=== PATIENT | male | born 1960 | race Caucasian/White ===

== ENCOUNTER 2018-02-09 18:46 | Inpatient (IN) | payer OTHER ==
[~2018-02-09] VITALS: Ht 182.8 cm; Wt 107.5 kg
--- NOTE | ~2018-02-09 | PR ---
[place], [place] PROGRESS NOTE [facility]: [id number] UNIT #: [id number] ROOM: 404 DOCTOR: GUNNAR MENDES MD BIRTHDATE: [birth year] DOS: 02/12/2018 SUBJECTIVE: The patient was seen in the cardiology department today 02/12/2018 for followup of atypical chest discomfort and an abnormal electrocardiogram. He was seen prior to a stress test. The patient does note that he has had a long history of an abnormal electrocardiogram. A cardiac catheterization was done at the [facility] by Dr. Olmos in January 2011 and demonstrated a left dominant circulation with normal left ventricular function and normal coronaries. PHYSICAL EXAMINATION: VITAL SIGNS: Today, his pulse is 53 and regular, blood pressure is 117/77. He is afebrile. He weighs 107.5 kg and has a body mass index of 32.2. HEENT: Normocephalic and atraumatic. Extraocular muscles are intact. Sclerae are clear. Pupils are equal, round and react to light. The oral mucosa is moist. Tongue is midline. NECK: Supple. He has no jugular distention. Carotids are full. LUNGS: Respirations are unlabored. His chest is clear to auscultation and percussion. He has no presacral edema or chest wall tenderness. HEART: Has a regular rhythm. He has a fourth heart sound, but no third heart sound or murmur. The PMI is not displaced. There is no precordial heave, lift or thrill. ABDOMEN: Soft and normally active without masses, organomegaly or bruits. EXTREMITIES: Showed no edema. Peripheral pulses are diminished in the feet. IMPRESSION: 1. Atypical chest pain, possibly due to gastroesophageal reflux or musculoskeletal etiologies. 2. Abnormal electrocardiogram demonstrating lateral T-wave inversion, consistent with ischemia. 3. Fever with signs of sepsis. 4. Acute exacerbation of chronic obstructive lung disease. 5. Ongoing tobacco abuse. 6. History of heavy alcohol consumption. PLAN: We will evaluate his cardiac status further with a pharmacologic stress test. Further recommendations depend upon the results of the stress test, but given his previously normal catheterization, we will probably manage him conservatively unless the stress test is predictive of a very high risk for coronary artery disease. I thank the hospitalist physicians for asking our advice regarding his care. [place], [place] PROGRESS NOTE NAME: ALEX GILLIS UNIT #: [id number] ROOM: 404 DOCTOR: GUNNAR MENDES MD BIRTHDATE: [birth year] GUNNAR MENDES MD CM:PNTRANS 1133 [id number] GUNNAR MENDES MD 02/12/18 1153 interface
[~2018-02-09 18:46] MED LIST: ASPIRIN81 M1 PO; CIPRO500 MG PO; DAYPRO600 M1 PO; ENTERIC ASPIRI325 MG PO; METRONIDAZOLE500 MG PO; MULTIPLE VITAMI1 CAP PO; ONDANSETRON4 MG PO; PERCOCET 325 MG1 TA2 PO; PRILOSEC20 MG PO; SIMVASTATIN40 MG PO; SKELAXIN800 MG PO; ULTRAM50 MG PO; VOLTAREN75 MG PO
[2018-02-09 18:51] VITALS: BP 125/79
[2018-02-09 19:32] LABS: HEMATOCRIT 40.3 % (42.0-52.0); HEMOGLOBIN 13.7 g/dl (14.0-18.0); MEAN CELL VOLUME 97.1 fl (80.0-94.0); PLATELET COUNT AUTOMATED 202 10*3/uL (130-400); RED BLOOD COUNT 4.15 10*6/uL (4.50-5.90); RED CELL DISTRI WIDTH 12.9 % (0-14.5); WHITE BLOOD COUNT 9.5 10*3/uL (4.8-10.8)
[2018-02-09 19:43] LABS: ACT PARTIAL THROMBO TIME 21.8 SECONDS (20.8-31.5)
[2018-02-09 19:48] LABS: ALKALINE PHOSPHATASE 69 U/L (45-117); BUN 11 mg/dl (7-24); CHLORIDE 101 mmol/L (98-107); CREATININE 1.22 mg/dL (0.70-1.30); POTASSIUM 3.6 mmol/L (3.5-5.1); SGOT/AST 30 IU/L (3-35); SGPT/ALT 52 U/L (12-78); SODIUM 135 mmol/L (136-145); TOTAL PROTEIN 7.6 gm/dL (6.4-8.2)
[2018-02-09 19:50] LABS: TROPONIN I < 0.015 ng/ml (<0.045)
[2018-02-09 19:52] LABS: ATYPICAL LYMPHS 2 % (0-0); PLATELET SUFFICIENCY NORMAL (NORMAL); TOTAL CELLS COUNTED 100 #CELLS
[2018-02-09 20:07] LABS: BILIRUBIN 1+ (NEGATIVE); BLOOD 1+ (NEGATIVE); CLARITY SL CLOUDY (CLEAR); COLOR YELLOW (YELLOW); GLUCOSE NEGATIVE (NEGATIVE); KETONE NEGATIVE (NEGATIVE); LEUKO ESTERASE NEGATIVE (NEGATIVE); NITRITE NEGATIVE (NEGATIVE); PH 5.5 (5.0-9.0); SPECIFIC GRAVITY >= 1.030 (1.005-1.030); UROBILINOGEN 0.2 E.U./dl (0.2-1.0)
[2018-02-09 20:14] LABS: BACTERIA 1+; EPITHELIAL CELLS 0-2; MUCOUS 1+; RBC 41-50 rbc/hpf (0-2)
[2018-02-09 20:42] VITALS: BP 121/71
[2018-02-09 21:13] VITALS: BP 129/79
[2018-02-09 22:00] VITALS: BP 117/66
[2018-02-09 23:00] VITALS: BP 118/69
[2018-02-10] VITALS: BP 120/73
[2018-02-10] MEDS ORDERED: CELEXA20 MG PO (00:02)
[2018-02-10] MEDS ORDERED: SIMVASTATIN40 MG PO (00:03)
[2018-02-10 07:27] LABS: HEMATOCRIT 38.9 % (42.0-52.0); HEMOGLOBIN 12.6 g/dl (14.0-18.0); MEAN CELL VOLUME 99.7 fl (80.0-94.0); MEAN CORPUSCULAR HGB 32.3 pg (27.0-31.0); MEAN CORPUSCULAR HGB CONC 32.4 g/dl (33.0-37.0); MEAN PLATELET VOLUME 11.3 fl (9.6-12.3); PLATELET COUNT AUTOMATED 196 10*3/uL (130-400); RED CELL DISTRI WIDTH 12.9 % (0-14.5); WHITE BLOOD COUNT 7.5 10*3/uL (4.8-10.8)
[2018-02-10 07:53] LABS: ALBUMIN 3.5 gm/dl (3.1-4.5); BUN 13 mg/dl (7-24); CHLORIDE 104 mmol/L (98-107); CHOLESTEROL 148 mg/dL (<200); CREATININE 1.07 mg/dL (0.70-1.30); PHOSPHOROUS 3.2 mg/dL (2.5-4.9); POTASSIUM 4.1 mmol/L (3.5-5.1); SGOT/AST 27 IU/L (3-35); SGPT/ALT 48 U/L (12-78); SODIUM 138 mmol/L (136-145); TRIGLYCERIDES 140 mg/dl (<150); VLDL CHOLESTEROL 28 mg/dL (6-40)
[2018-02-10 07:59] LABS: ALKALINE PHOSPHATASE 64 U/L (45-117); HDL CHOLESTEROL 37 mg/dl (40-60); LDL CHOLESTEROL 83 mg/dL (9-159); THYROID STIM HORMONE (HS) 0.185 uIU/ml (0.358-4.75)
[2018-02-10 08:00] VITALS: BP 125/70
[2018-02-10 08:21] LABS: ATYPICAL LYMPHS 3 % (0-0); PLATELET SUFFICIENCY NORMAL (NORMAL); TOTAL CELLS COUNTED 100 #CELLS
[2018-02-10 09:41] LABS: VITAMIN D, 25-HYDROXY 27.5 ng/mL (30-100)
[2018-02-10 12:00] VITALS: BP 122/63
[2018-02-10 16:00] VITALS: BP 123/65
[2018-02-10 20:00] VITALS: BP 138/71
[2018-02-11] VITALS: BP 113/65
[2018-02-11 08:00] VITALS: BP 110/72
[2018-02-11 08:14] LABS: BASO % 0.1 % (0.0-1.0); HEMATOCRIT 39.3 % (42.0-52.0); HEMOGLOBIN 12.7 g/dl (14.0-18.0); LYMPH # 0.9 10*3/uL (1.3-4.4); MEAN CELL VOLUME 100.5 fl (80.0-94.0); MEAN CORPUSCULAR HGB 32.5 pg (27.0-31.0); MEAN CORPUSCULAR HGB CONC 32.3 g/dl (33.0-37.0); MEAN PLATELET VOLUME 11.4 fl (9.6-12.3); MONO # 0.7 10*3/uL (0.1-1.0); MONO % 4.8 % (3.0-9.0); NEUT # 12.8 10*3/uL (2.3-7.9); NEUT % 88.8 % (47.0-73.0); PLATELET COUNT AUTOMATED 196 10*3/uL (130-400); RED BLOOD COUNT 3.91 10*6/uL (4.50-5.90); WHITE BLOOD COUNT 14.4 10*3/uL (4.8-10.8)
[2018-02-11 08:38] LABS: BUN 15 mg/dl (7-24); CHLORIDE 104 mmol/L (98-107); CREATININE 1.11 mg/dL (0.70-1.30); POTASSIUM 4.4 mmol/L (3.5-5.1); SODIUM 139 mmol/L (136-145)
[2018-02-11 12:00] VITALS: BP 126/66
[2018-02-11 16:00] VITALS: BP 115/67
[2018-02-11 20:00] VITALS: BP 129/80
[2018-02-12] VITALS: BP 114/72
[2018-02-12 07:27] LABS: BASO % 0.1 % (0.0-1.0); EOS % 0.1 % (1.0-4.0); HEMATOCRIT 39.5 % (42.0-52.0); HEMOGLOBIN 12.7 g/dl (14.0-18.0); LYMPH # 1.6 10*3/uL (1.3-4.4); LYMPH % 12.6 % (27.0-41.0); MEAN CELL VOLUME 100.5 fl (80.0-94.0); MEAN CORPUSCULAR HGB 32.3 pg (27.0-31.0); MEAN CORPUSCULAR HGB CONC 32.2 g/dl (33.0-37.0); MEAN PLATELET VOLUME 11.3 fl (9.6-12.3); MONO # 0.5 10*3/uL (0.1-1.0); MONO % 4.2 % (3.0-9.0); NEUT # 10.6 10*3/uL (2.3-7.9); NEUT % 82.6 % (47.0-73.0); PLATELET COUNT AUTOMATED 207 10*3/uL (130-400); RED BLOOD COUNT 3.93 10*6/uL (4.50-5.90); RED CELL DISTRI WIDTH 12.7 % (0-14.5); WHITE BLOOD COUNT 12.8 10*3/uL (4.8-10.8)
[2018-02-12 07:56] LABS: ALBUMIN 3.3 gm/dl (3.1-4.5); ALKALINE PHOSPHATASE 45 U/L (45-117); BUN 21 mg/dl (7-24); CHLORIDE 102 mmol/L (98-107); CREATININE 1.07 mg/dL (0.70-1.30); POTASSIUM 4.2 mmol/L (3.5-5.1); SGOT/AST 22 IU/L (3-35); SGPT/ALT 35 U/L (12-78); SODIUM 137 mmol/L (136-145); TOTAL PROTEIN 6.4 gm/dL (6.4-8.2)
[2018-02-12 08:00] VITALS: BP 117/77
[2018-02-12 12:00] VITALS: BP 122/72
[2018-02-12 16:00] VITALS: BP 127/56
[2018-02-12 20:00] VITALS: BP 132/71
[2018-02-13 00:23] VITALS: BP 121/76
[2018-02-13 06:58] LABS: HEMATOCRIT 39.2 % (42.0-52.0); HEMOGLOBIN 13.1 g/dl (14.0-18.0); LYMPH # 1.7 10*3/uL (1.3-4.4); LYMPH % 15.8 % (27.0-41.0); MEAN CELL VOLUME 97.5 fl (80.0-94.0); MEAN CORPUSCULAR HGB 32.6 pg (27.0-31.0); MEAN CORPUSCULAR HGB CONC 33.4 g/dl (33.0-37.0); MEAN PLATELET VOLUME 11.2 fl (9.6-12.3); MONO # 0.4 10*3/uL (0.1-1.0); MONO % 4.1 % (3.0-9.0); NEUT # 8.5 10*3/uL (2.3-7.9); NEUT % 79.7 % (47.0-73.0); PLATELET COUNT AUTOMATED 207 10*3/uL (130-400); RED BLOOD COUNT 4.02 10*6/uL (4.50-5.90); RED CELL DISTRI WIDTH 12.3 % (0-14.5); WHITE BLOOD COUNT 10.6 10*3/uL (4.8-10.8)
[2018-02-13 07:32] LABS: ALBUMIN 3.3 gm/dl (3.1-4.5); BUN 18 mg/dl (7-24); CHLORIDE 102 mmol/L (98-107); POTASSIUM 4.1 mmol/L (3.5-5.1); SODIUM 137 mmol/L (136-145)
[2018-02-13 07:44] LABS: ALKALINE PHOSPHATASE 46 U/L (45-117); CREATININE 0.97 mg/dL (0.70-1.30); PHOSPHOROUS 3.4 mg/dL (2.5-4.9); SGOT/AST 15 IU/L (3-35); SGPT/ALT 36 U/L (12-78); TOTAL PROTEIN 6.6 gm/dL (6.4-8.2)
[2018-02-13 08:00] VITALS: BP 103/69
[2018-02-13] MEDS ORDERED: DICYCLOMINE HCL20 MG PO (09:03)
[2018-02-13] MEDS ORDERED: ZITHROMAX500 MG PO (09:03)
[2018-02-13] MEDS ORDERED: ATARAX,VISTARIL50 MG PO (09:03)
[2018-02-13] MEDS ORDERED: METHOCARBAMOL750 M1 PO (09:03)
[2018-02-13] MEDS ORDERED: PREDNISONE10 MG PO (09:03)
[2018-02-13] MEDS ORDERED: VITAMIN D-32000 UNIT PO (09:03)
== END 2018-02-13 11:57 | disposition home or self-care (01) | DRG 871 ==
LOC: ED 18:46 → EDHOLD 20:03 → ED 20:03 → EDHOLD 20:09 → ICCU 20:19 → EDHOLD 20:19 → 4E 20:37 → EDHOLD 20:37 → 4E 20:45
PROVIDERS: Emergency Medicine; Family Medicine; Internal Medicine Nephrology; Registered Nurse
PROC: 3E073KZ Introduction of Other Diagnostic Substance into Coronary Artery, Percutaneous Approach (ICD-10-PCS; principal; 2018-02-12)
PROC: 4A02XM4 Measurement of Cardiac Total Activity, External Approach (ICD-10-PCS; principal; 2018-02-12)
DX: A41.9 Sepsis, unspecified organism (principal); J18.9 Pneumonia, unspecified organism; E87.1 Hypo-osmolality and hyponatremia; J44.0 Chronic obstructive pulmonary disease with (acute) lower respiratory infection; J44.1 Chronic obstructive pulmonary disease with (acute) exacerbation; D53.9 Nutritional anemia, unspecified; K21.9 Gastro-esophageal reflux disease without esophagitis; R07.81 Pleurodynia; E78.5 Hyperlipidemia, unspecified; F17.210 Nicotine dependence, cigarettes, uncomplicated; R07.89 Other chest pain; R73.9 Hyperglycemia, unspecified; H54.61 Unqualified visual loss, right eye, normal vision left eye; E83.51 Hypocalcemia; E66.09 Other obesity due to excess calories; Z68.30 Body mass index [BMI] 30.0-30.9, adult; Z71.6 Tobacco abuse counseling; Z72.89 Other problems related to lifestyle; Z79.2 Long term (current) use of antibiotics; Z79.82 Long term (current) use of aspirin; Z79.899 Other long term (current) drug therapy; Z90.49 Acquired absence of other specified parts of digestive tract; Z87.81 Personal history of (healed) traumatic fracture; Z83.3 Family history of diabetes mellitus; Z84.1 Family history of disorders of kidney and ureter; Z82.49 Family history of ischemic heart disease and other diseases of the circulatory system

== ENCOUNTER → 2018-04-04 | Day surgery (SDC) | payer OTHER ==
[~2018-04-04] VITALS: Ht 182.8 cm; Wt 98.9 kg
[~2018-04-04] MED LIST changes: +ATARAX,VISTARIL50 MG PO; +CELEXA20 MG PO; +DICYCLOMINE HCL20 MG PO; +METHOCARBAMOL750 M1 PO; +NAPROSYN500 MG PO; +NEXIUM20 M1 PO; +OMEPRAZOLE40 MG PO; +PERCOCET 5-3251 EACH PO; +PREDNISONE10 MG PO; +SUPER QUINTS1 EACH PO; +VITAMIN D-32000 UNIT PO; +ZITHROMAX500 MG PO
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
[2018-04-04 09:50] VITALS: BP 91/73
[2018-04-04 11:17] VITALS: BP 108/64
[2018-04-04 11:32] VITALS: BP 102/75
[2018-04-04 11:40] VITALS: BP 100/79
== END | disposition home or self-care (01) ==
LOC: SDC 03-29 12:30
DX: K29.50 Unspecified chronic gastritis without bleeding (principal); Z88.8 Allergy status to other drugs, medicaments and biological substances; Z90.49 Acquired absence of other specified parts of digestive tract; E78.00 Pure hypercholesterolemia, unspecified; K44.9 Diaphragmatic hernia without obstruction or gangrene; K22.70 Barrett's esophagus without dysplasia; F17.210 Nicotine dependence, cigarettes, uncomplicated; Z79.899 Other long term (current) drug therapy; M19.90 Unspecified osteoarthritis, unspecified site

== ENCOUNTER 2018-04-30 12:45 | Inpatient (IN) | payer OTHER ==
[~2018-04-30] VITALS: Ht 182.8 cm; Wt 102.1 kg
--- NOTE | ~2018-04-30 | PR ---
[place], [place] PROGRESS NOTE NAME: ALEX GILLIS UNIT #: [id number] ROOM: 411 DOCTOR: ZAYRA HUFFMAN MD BIRTHDATE: [birth year] DOS: 05/03/2018 SUBJECTIVE: The patient noted comfortable at this time, resting in the bed. Chest pain has been improving progressively. He has been noted small amount of thick sputum expectoration; yesterday has not been noted further expectorate sputum. Denies symptoms of chest pain. Thoracentesis was done yesterday at the patient's bedside. OBJECTIVE: VITAL SIGNS: Normal temperature, respiratory rate 20, heart rate 67, blood pressure 120/68 and pulse oxygen saturation on room air was 96% saturation. HEENT: No acute change. NECK: Supple. CARDIOVASCULAR: S1, S2 audible. LUNGS: The patient noted with mild decreased breaths in the left lung base remaining lung was clear. ABDOMEN: Soft and nontender. EXTREMITIES: No acute edema. LABORATORY DATA: Reviewed the pleural fluid analysis noted with essentially finding consistent with an exudate pleural fluid. A pH was noted as 7.32. The culture of the patient, no bacterial growth. The organism seen in the pleural fluid analysis. Chest x-ray done this morning shows continued improvement in the aeration of lung. The patient with a small left pleural fluid present. IMPRESSION: 1. An exudative pleural fluid, most likely secondary to atelectasis of the lung with the pulmonary contusion. 2. History of nicotine abuse, suspected chronic obstructive pulmonary disease. 3. Rib fractures on the left side, which has been noted closed fracture involving the ribs 7, 8 and 9 rib. PLAN OF MANAGEMENT: The patient could be discharged on oral pain medications and also to continue those previous medical management. Active tobacco use was discussed with the patient in detail. Outpatient followup was suggested patient postdischarge for further assessment. [place], [place] PROGRESS NOTE NAME: ALEX GILLIS UNIT #: [id number] ROOM: 411 DOCTOR: ZAYRA HUFFMAN MD BIRTHDATE: [birth year] ZAYRA REDDY MD CM:PNTRANS 1005 [id number] ZAYRA DEL RIO MD 05/03/18 1015 interface
--- NOTE | ~2018-04-30 | EKG ---
[place], [place] ELECTROCARDIOGRAM REPORT NAME: ALEX GILLIS UNIT #: [id number] ROOM: 411 DOCTOR: MAUREEN DEL RIO MD,ZAYRA BIRTHDATE: [birth year] DOS: 04/30/2018 ELECTROCARDIOGRAM REPORT DATE AND TIME OF PROCEDURE: 04/30/2018 at 3:16 p.m. FINDINGS: Normal sinus rhythm. Heart rate 61 beats per minute. R-wave was noted prominent in the chest leads. T-wave inversion noted in all of the chest leads. Nonspecific ST-T changes noted in all of the electrocardiogram. ZAYRA REDDY MD CM:EKGRPT:ELECTROCARDIOGRAM REPORT [id number] ZAYRA DEL RIO MD
--- NOTE | ~2018-04-30 | PR ---
[place], [place] PROGRESS NOTE [id number] UNIT #: [id number] ROOM: 411 DOCTOR: MAUREEN DEL RIO MD,ZAYRA BIRTHDATE: [birth year] DOS: 05/02/2018 PULMONARY PROGRESS NOTE SUBJECTIVE: The patient noted comfortable at this time, resting on the bed. Chest pain has been noted decreased from yesterday's examination on current pain management. Denies symptoms of sputum expectoration, coughing or hemoptysis. The patient denies symptoms of fever or chills. Denies symptoms of epistaxis. Denies symptoms of hematuria. Denies symptoms of headache or diplopia. The remaining systems were reviewed, they were noted all negative. PHYSICAL EXAMINATION: GENERAL: The patient was sitting on the bed this morning without any distress. VITAL SIGNS: Temperature noted normal, respiratory rate 20, heart rate of 74, blood pressure 127/80. Pulse oxygen saturation recorded on room air 96% saturation. HEENT: Examination shows head was atraumatic. Eyes nonicterus. NECK: Supple. CARDIOVASCULAR: S1, S2 is audible. LUNGS: The patient was noted with decreased breath sounds in the left lower lung. There were no crackles or wheezing. ABDOMEN: Soft, nontender. Bowel sounds present. EXTREMITIES: Without any acute edema. MUSCULOSKELETAL: Without any acute deformity. VISIBLE SKIN: No lesions or rashes. CENTRAL NERVOUS SYSTEM: Cranial nerves 2-12 intact. LABORATORY DATA: CT scan that was ordered yesterday, I reviewed personally shows evidence of subsegmental atelectasis in the right lower lobe. The left lung was noted with significant area of atelectasis with associated pleural effusion. Rib fracture identified again of the 7th, 8th and 9th ribs in the left side laterally. IMPRESSION: 1. The patient with traumatic possibility of hemothorax with pulmonary contusion on the left side. 2. Subsegmental atelectasis secondary to ineffective secretion clearance of the right lower lobe. There was no evidence of acute pneumonia. 3. Status post fall with a closed 3 rib fractures 7th, 8th and 9th rib. 4. History of tobacco use. 5. Obesity. PLAN OF MANAGEMENT: The patient has been assessed for breath sounds with the ultrasound and was planned for thoracentesis to be done today at the bedside. The fluid was noted small, but tapable. Continue in the meantime pain management. Switching the patient to oral pain medication as well. For the pulmonary contusion at this time, no intervention will be necessary. Observation will be only needed. Usual care, other supportive plan of therapy and care plan. Additional treatment changes if necessary will be ordered after [place], [place] PROGRESS NOTE NAME: ALEX GILLIS UNIT #: [id number] ROOM: 411 DOCTOR: MAUREEN DEL RIO MD,ZAYRA BIRTHDATE: [birth year] the completion of thoracentesis. ZAYRA REDDY MD CM:PNTRANS [id number] ZAYRA DEL RIO MD 05/03/18 0143 interface
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
--- NOTE | ~2018-04-30 | PROC NOTE ---
[place], [place] PROCEDURE NOTE NAME: ALEX GILLIS UNIT #: [id number] ROOM: 411 DOCTOR: MAUREEN DEL RIO MD,ZAYAR BIRTHDATE: [birth year] DOS: 05/02/2018 THORACENTESIS NOTE PREOPERATIVE DIAGNOSES: The patient with possibility of a right-sided hemothorax. The left-sided hemothorax after a fall and chest trauma. POSTOPERATIVE DIAGNOSES: Evidence of a hemorrhagic pleural fluid was noted. The patient does not seem to have obvious consistent with a hemothorax. COMPLICATION: None. Total pleural fluid removed was 150 mL. PROCEDURE DESCRIPTION: Informed consent was obtained from the patient. ____ chest was also performed. The patient's left lateral lower chest wall, was the thoracentesis site. The skin was cleaned with chlorhexidine solution. A 1% lidocaine was administered in the skin and intercostal space. The 1% lidocaine was administered for the thoracentesis after the small incision given in the skin. [place] thoracentesis catheter introduced through the incision into the left pleural space. A total of 150 mL of pleural fluid was obtained with a syringe and the vacuum bottles. Procedure well tolerated without any difficulty. The pleural fluid sent for all the necessary testing including cultures, cytology and others. The chest x-ray post-procedure was also reviewed. The chest x-ray shows reduction of the area of subsegmental atelectasis in the right lower lobe. The pleural fluid was noted to decrease with improvement in aeration of the left lung as well with some remaining area of atelectasis. Infiltration still present in the left side. A rib fracture ____ was seen again. ZAYRA REDDY MD CM:PROCNOTE:PROCEDURE NOTE [id number] ZAYRA DEL RIO MD
[~2018-04-30 12:45] MED LIST changes: -NAPROSYN500 MG PO; -NEXIUM20 M1 PO; -PERCOCET 5-3251 EACH PO
[2018-04-30 12:46] VITALS: BP 134/70
[2018-04-30] MEDS ORDERED: NAPROSYN500 MG PO (13:31)
[2018-04-30 15:22] LABS: BASO # 0.1 10*3/uL (0.0-0.1); BASO % 0.5 % (0.0-1.0); EOS # 0.4 10*3/uL (0.0-0.4); EOS % 3.5 % (1.0-4.0); HEMATOCRIT 40.5 % (42.0-52.0); HEMOGLOBIN 13.3 g/dl (14.0-18.0); LYMPH # 2.1 10*3/uL (1.3-4.4); LYMPH % 17.1 % (27.0-41.0); MEAN CELL VOLUME 99.8 fl (80.0-94.0); MEAN CORPUSCULAR HGB 32.8 pg (27.0-31.0); MEAN CORPUSCULAR HGB CONC 32.8 g/dl (33.0-37.0); MEAN PLATELET VOLUME 10.5 fl (9.6-12.3); MONO # 0.9 10*3/uL (0.1-1.0); NEUT # 8.8 10*3/uL (2.3-7.9); NEUT % 71.7 % (47.0-73.0); PLATELET COUNT AUTOMATED 244 10*3/uL (130-400); RED BLOOD COUNT 4.06 10*6/uL (4.50-5.90); RED CELL DISTRI WIDTH 12.9 % (0-14.5); WHITE BLOOD COUNT 12.3 10*3/uL (4.8-10.8)
[2018-04-30 15:38] LABS: ALBUMIN 3.8 gm/dl (3.1-4.5); ALKALINE PHOSPHATASE 62 U/L (45-117); BUN 11 mg/dl (7-24); CHLORIDE 107 mmol/L (98-107); CREATININE 1.06 mg/dL (0.70-1.30); POTASSIUM 4.4 mmol/L (3.5-5.1); SGOT/AST 13 IU/L (3-35); SGPT/ALT 23 U/L (12-78); SODIUM 141 mmol/L (136-145); TOTAL PROTEIN 7.3 gm/dL (6.4-8.2)
[2018-04-30 15:41] LABS: TROPONIN I < 0.015 ng/ml (<0.045)
[2018-04-30 16:08] VITALS: BP 150/91
[2018-04-30 17:00] VITALS: BP 160/91
[2018-04-30] MEDS ORDERED: NEXIUM20 M1 PO (18:00)
[2018-04-30 20:00] VITALS: BP 146/82
[2018-05-01] VITALS: BP 148/78
[2018-05-01 07:00] LABS: BASO # 0.1 10*3/uL (0.0-0.1); BASO % 0.6 % (0.0-1.0); EOS # 0.5 10*3/uL (0.0-0.4); EOS % 5.3 % (1.0-4.0); HEMATOCRIT 40.8 % (42.0-52.0); HEMOGLOBIN 13.1 g/dl (14.0-18.0); MEAN CELL VOLUME 100.2 fl (80.0-94.0); MEAN CORPUSCULAR HGB 32.2 pg (27.0-31.0); MEAN CORPUSCULAR HGB CONC 32.1 g/dl (33.0-37.0); MEAN PLATELET VOLUME 10.4 fl (9.6-12.3); MONO # 0.7 10*3/uL (0.1-1.0); MONO % 7.3 % (3.0-9.0); NEUT # 6.6 10*3/uL (2.3-7.9); NEUT % 66.6 % (47.0-73.0); PLATELET COUNT AUTOMATED 246 10*3/uL (130-400); RED BLOOD COUNT 4.07 10*6/uL (4.50-5.90); RED CELL DISTRI WIDTH 13.1 % (0-14.5)
[2018-05-01 07:19] LABS: ALBUMIN 3.4 gm/dl (3.1-4.5); ALKALINE PHOSPHATASE 68 U/L (45-117); BUN 11 mg/dl (7-24); CHLORIDE 106 mmol/L (98-107); CHOLESTEROL 154 mg/dL (<200); FREE T4 1.16 ng/dl (0.76-1.46); HDL CHOLESTEROL 41 mg/dl (40-60); LDL CHOLESTEROL 71 mg/dL (9-159); PHOSPHOROUS 2.8 mg/dL (2.5-4.9); POTASSIUM 4.3 mmol/L (3.5-5.1); SGOT/AST 26 IU/L (3-35); SGPT/ALT 39 U/L (12-78); SODIUM 138 mmol/L (136-145); TRIGLYCERIDES 209 mg/dl (<150); VLDL CHOLESTEROL 42 mg/dL (6-40)
[2018-05-01 08:00] VITALS: BP 149/74
[2018-05-01 08:40] LABS: VITAMIN D, 25-HYDROXY 36.6 ng/mL (30-100)
[2018-05-01 12:00] VITALS: BP 130/76
[2018-05-01 16:00] VITALS: BP 117/72; BP 133/78
[2018-05-01 20:00] VITALS: BP 142/78
[2018-05-02] VITALS: BP 127/80
[2018-05-02 08:00] VITALS: BP 155/83
[2018-05-02 11:15] LABS: BODY FLUID WBC 5775 /uL
[2018-05-02 12:00] VITALS: BP 138/67
[2018-05-02 12:06] LABS: BF LYMPHOCYTES 24 %; BF MACROPHAGES 35 %; BF MESOTHELIALS 2 %; BF NEUTROPHILS 7 %
[2018-05-02 16:00] VITALS: BP 148/76
[2018-05-02 20:00] VITALS: BP 143/70
[2018-05-03] VITALS: BP 126/70
[2018-05-03 08:00] VITALS: BP 128/68
[2018-05-03] MEDS ORDERED: PERCOCET 5-3251 EACH PO (12:03)
== END 2018-05-03 12:25 | disposition home or self-care (01) | DRG 183 ==
LOC: ED 12:45 → EDHOLD 15:07 → 4E 15:07
PROVIDERS: Internal Medicine Critical Care Medicine; Nurse Practitioner Family; Registered Nurse
PROC: 0W9B3ZX Drainage of Left Pleural Cavity, Percutaneous Approach, Diagnostic (ICD-10-PCS; principal; 2018-05-02)
DX: S22.42XA Multiple fractures of ribs, left side, initial encounter for closed fracture (principal); S27.1XXA Traumatic hemothorax, initial encounter; J18.0 Bronchopneumonia, unspecified organism; J90 Pleural effusion, not elsewhere classified; J98.11 Atelectasis; K57.90 Diverticulosis of intestine, part unspecified, without perforation or abscess without bleeding; K21.9 Gastro-esophageal reflux disease without esophagitis; E78.5 Hyperlipidemia, unspecified; F17.210 Nicotine dependence, cigarettes, uncomplicated; H54.40 Blindness, one eye, unspecified eye; K44.9 Diaphragmatic hernia without obstruction or gangrene; E66.9 Obesity, unspecified; D53.9 Nutritional anemia, unspecified; W22.03XA Walked into furniture, initial encounter; Y93.89 Activity, other specified; Z84.1 Family history of disorders of kidney and ureter; Z90.49 Acquired absence of other specified parts of digestive tract; Z83.3 Family history of diabetes mellitus; Z82.49 Family history of ischemic heart disease and other diseases of the circulatory system; Y92.009 Unspecified place in unspecified non-institutional (private) residence as the place of occurrence of the external cause; Z91.041 Radiographic dye allergy status; Y99.8 Other external cause status; Z68.29 Body mass index [BMI] 29.0-29.9, adult

== ENCOUNTER → 2019-09-16 | Outpatient (CLI) | payer MEDICARE ==
[~2019-09-16] MED LIST changes: +CEFUROXIME AXE250 MG PO; +CYTOTEC200 MCG PO; +DICLOFENAC SOD50 MG PO; +MECLIZINE HCL25 M2 PO; +NAPROSYN500 MG PO; +NEXIUM20 M1 PO; +OMEPRAZOLE D/R20 MG PO; +PERCOCET 5-3251 EACH PO; +VITAMIN D50000 UNIT PO
[2019-09-16 10:24] LABS: BASO # 0.1 10*3/uL (0.0-0.1); BASO % 0.7 % (0.0-1.0); EOS # 0.2 10*3/uL (0.0-0.4); EOS % 2.1 % (1.0-4.0); LYMPH # 1.5 10*3/uL (1.3-4.4); LYMPH % 17.5 % (27.0-41.0); MEAN CELL VOLUME 104.3 fl (80.0-94.0); MEAN CORPUSCULAR HGB 33.2 pg (27.0-31.0); MEAN CORPUSCULAR HGB CONC 31.8 g/dl (33.0-37.0); MEAN PLATELET VOLUME 10.4 fl (9.6-12.3); MONO # 0.5 10*3/uL (0.1-1.0); MONO % 5.9 % (3.0-9.0); NEUT # 6.5 10*3/uL (2.3-7.9); NEUT % 73.6 % (47.0-73.0); PLATELET COUNT AUTOMATED 278 10*3/uL (130-400); RED BLOOD COUNT 4.22 10*6/uL (4.50-5.90); RED CELL DISTRI WIDTH 12.8 % (0-14.5); WHITE BLOOD COUNT 8.8 10*3/uL (4.8-10.8)
[2019-09-16 11:05] LABS: ALBUMIN 3.7 gm/dl (3.1-4.5); BUN 15 mg/dl (7-24); CHLORIDE 109 mmol/L (98-107); CHOLESTEROL 129 mg/dL (<200); CREATININE 1.21 mg/dL (0.70-1.30); HDL CHOLESTEROL 41 mg/dl (40-60); POTASSIUM 4.4 mmol/L (3.5-5.1); SGOT/AST 22 IU/L (3-35); SODIUM 140 mmol/L (136-145)
[2019-09-16 11:14] LABS: ALKALINE PHOSPHATASE 56 U/L (45-117); FREE T4 0.97 ng/dl (0.76-1.46); LDL CHOLESTEROL 70 mg/dL (9-159); SGPT/ALT 34 U/L (12-78); THYROID STIM HORMONE (HS) 0.621 uIU/ml (0.358-4.75); TOTAL PROTEIN 6.9 gm/dL (6.4-8.2); TRIGLYCERIDES 89 mg/dl (<150); VLDL CHOLESTEROL 18 mg/dL (6-40)
[2019-09-16 11:52] LABS: VITAMIN D, 25-HYDROXY 39.8 ng/mL (30-100)
== END | disposition home or self-care (01) ==
LOC: LAB 10:00
PROVIDERS: Internal Medicine
DX: E55.9 Vitamin D deficiency, unspecified (principal); E78.2 Mixed hyperlipidemia; I10 Essential (primary) hypertension; R73.9 Hyperglycemia, unspecified

== ENCOUNTER 2019-11-19 17:44 | Emergency (ER) | payer MEDICARE ==
[~2019-11-19] VITALS: Ht 182.8 cm; Wt 92.5 kg
[2019-11-19 17:52] VITALS: BP 106/65
[2019-11-19] MEDS ORDERED: AUGMENTIN 875875 MG PO (19:02)
== END 2019-11-19 19:10 | disposition home or self-care (01) ==
LOC: ED 17:44
DX: S61.432A Puncture wound without foreign body of left hand, initial encounter (principal); K21.9 Gastro-esophageal reflux disease without esophagitis; E78.5 Hyperlipidemia, unspecified; E66.9 Obesity, unspecified; Z79.899 Other long term (current) drug therapy; Z79.2 Long term (current) use of antibiotics; Z90.49 Acquired absence of other specified parts of digestive tract; Z98.61 Coronary angioplasty status; Z98.890 Other specified postprocedural states; W22.8XXA Striking against or struck by other objects, initial encounter; Y93.89 Activity, other specified; Y92.89 Other specified places as the place of occurrence of the external cause; Y99.8 Other external cause status

== ENCOUNTER → 2020-07-15 | Outpatient (CLI) | payer MEDICARE ==
[~2020-07-15] MED LIST changes: +AUGMENTIN 875875 MG PO
[2020-07-15 10:23] LABS: BASO # 0.1 10*3/uL (0.0-0.1); BASO % 0.4 % (0.0-1.0); EOS # 0.2 10*3/uL (0.0-0.4); EOS % 1.4 % (1.0-4.0); HEMATOCRIT 42.6 % (42.0-52.0); LYMPH # 2.9 10*3/uL (1.3-4.4); LYMPH % 19.7 % (27.0-41.0); MEAN CELL VOLUME 103.6 fl (80.0-94.0); MEAN CORPUSCULAR HGB 33.1 pg (27.0-31.0); MEAN CORPUSCULAR HGB CONC 31.9 g/dl (33.0-37.0); MEAN PLATELET VOLUME 10.7 fl (9.6-12.3); MONO % 7.1 % (3.0-9.0); NEUT # 10.4 10*3/uL (2.3-7.9); NEUT % 71.1 % (47.0-73.0); PLATELET COUNT AUTOMATED 318 10*3/uL (130-400); RED BLOOD COUNT 4.11 10*6/uL (4.50-5.90); RED CELL DISTRI WIDTH 13.4 % (0-14.5); WHITE BLOOD COUNT 14.7 10*3/uL (4.8-10.8)
[2020-07-15 10:50] LABS: ALBUMIN 3.8 gm/dl (3.1-4.5); ALKALINE PHOSPHATASE 56 U/L (45-117); BUN 32 mg/dl (7-24); CHLORIDE 110 mmol/L (98-107); CHOLESTEROL 154 mg/dL (<200); CREATININE 1.45 mg/dL (0.70-1.30); FREE T4 0.97 ng/dl (0.76-1.46); HDL CHOLESTEROL 61 mg/dl (40-60); LDL CHOLESTEROL 79 mg/dL (9-159); POTASSIUM 4.7 mmol/L (3.5-5.1); SGOT/AST 52 IU/L (3-35); SGPT/ALT 76 U/L (12-78); SODIUM 141 mmol/L (136-145); TOTAL PROTEIN 6.9 gm/dL (6.4-8.2); TRIGLYCERIDES 68 mg/dl (<150); VLDL CHOLESTEROL 14 mg/dL (6-40)
[2020-07-15 10:54] LABS: THYROID STIM HORMONE (HS) 0.745 uIU/ml (0.358-4.75)
[2020-07-15 11:10] LABS: VITAMIN D, 25-HYDROXY 44.2 ng/mL (30-100)
== END | disposition home or self-care (01) ==
LOC: LAB 09:54 → NM 10:00
PROVIDERS: ATTEND Internal Medicine
DX: Z00.00 Encounter for general adult medical examination without abnormal findings (principal); M86.9 Osteomyelitis, unspecified; E78.2 Mixed hyperlipidemia; I10 Essential (primary) hypertension; R73.03 Prediabetes; E55.9 Vitamin D deficiency, unspecified; R70.0 Elevated erythrocyte sedimentation rate; R79.82 Elevated C-reactive protein (CRP)

== ENCOUNTER → 2020-07-17 | Outpatient (CLI) | payer MEDICARE | END | disposition home or self-care (01) | LOC: CT 10:00 | PROVIDERS: ATTEND Internal Medicine | DX: R51 Headache (principal) ==

== ENCOUNTER → 2020-07-30 | Outpatient (CLI) | payer MEDICARE | END | disposition home or self-care (01) | LOC: US 09:42 | PROVIDERS: ATTEND Internal Medicine | DX: M51.34 Other intervertebral disc degeneration, thoracic region (principal); M51.37 Other intervertebral disc degeneration, lumbosacral region; M85.88 Other specified disorders of bone density and structure, other site; R79.89 Other specified abnormal findings of blood chemistry ==

== ENCOUNTER 2021-01-14 09:00 | Emergency (ER) | payer MEDICARE ==
[~2021-01-14] VITALS: Ht 182.8 cm; Wt 90.7 kg
[2021-01-14 09:11] VITALS: BP 156/83
[2021-01-14] MEDS ORDERED: HYDROCODON-ACE1 EACH PO (11:41)
== END 2021-01-14 12:59 | disposition home or self-care (01) ==
LOC: ED 09:00
DX: M54.31 Sciatica, right side (principal); Z98.890 Other specified postprocedural states; E78.00 Pure hypercholesterolemia, unspecified; F17.200 Nicotine dependence, unspecified, uncomplicated; Z79.899 Other long term (current) drug therapy; Z90.49 Acquired absence of other specified parts of digestive tract; Z95.818 Presence of other cardiac implants and grafts; M19.90 Unspecified osteoarthritis, unspecified site

== ENCOUNTER → 2021-02-03 | Outpatient (CLI) | payer MEDICARE ==
[~2021-02-03] MED LIST changes: +HYDROCODON-ACE1 EACH PO
[2021-02-03 08:45] LABS: BASO # 0.1 10*3/uL (0.0-0.1); BASO % 0.7 % (0.0-1.0); EOS # 0.3 10*3/uL (0.0-0.4); EOS % 2.3 % (1.0-4.0); HEMATOCRIT 43.9 % (42.0-52.0); LYMPH # 2.3 10*3/uL (1.3-4.4); LYMPH % 19.1 % (27.0-41.0); MEAN CELL VOLUME 101.6 fl (80.0-94.0); MEAN CORPUSCULAR HGB 33.6 pg (27.0-31.0); MEAN PLATELET VOLUME 9.9 fl (9.6-12.3); MONO # 0.9 10*3/uL (0.1-1.0); MONO % 7.1 % (3.0-9.0); NEUT # 8.4 10*3/uL (2.3-7.9); NEUT % 70.3 % (47.0-73.0); PLATELET COUNT AUTOMATED 325 10*3/uL (130-400); RED BLOOD COUNT 4.32 10*6/uL (4.50-5.90); RED CELL DISTRI WIDTH 12.4 % (0-14.5); WHITE BLOOD COUNT 11.9 10*3/uL (4.8-10.8)
[2021-02-03 09:03] LABS: CHLORIDE 104 mmol/L (98-107); POTASSIUM 4.6 mmol/L (3.5-5.1); SODIUM 138 mmol/L (136-145)
[2021-02-03 09:12] LABS: ALBUMIN 3.9 gm/dl (3.1-4.5); ALKALINE PHOSPHATASE 64 U/L (45-117); BUN 24 mg/dl (7-24); CHOLESTEROL 185 mg/dL (<200); CREATININE 1.08 mg/dL (0.70-1.30); FREE T4 0.85 ng/dl (0.76-1.46); HDL CHOLESTEROL 54 mg/dl (40-60); LDL CHOLESTEROL 106 mg/dL (9-159); SGOT/AST 31 IU/L (3-35); SGPT/ALT 51 U/L (12-78); THYROID STIM HORMONE (HS) 0.599 uIU/ml (0.358-4.75); TOTAL PROTEIN 7.2 gm/dL (6.4-8.2); TRIGLYCERIDES 125 mg/dl (<150); VLDL CHOLESTEROL 25 mg/dL (6-40)
== END | disposition home or self-care (01) ==
LOC: LAB 08:20 → CT 10:00
PROVIDERS: ATTEND Internal Medicine
DX: R10.84 Generalized abdominal pain (principal); E78.2 Mixed hyperlipidemia; I10 Essential (primary) hypertension; R73.03 Prediabetes; E55.9 Vitamin D deficiency, unspecified

== ENCOUNTER → 2021-02-27 | Outpatient (CLI) | payer MEDICARE | END | disposition home or self-care (01) | LOC: COVID19 12:42 | PROVIDERS: ATTEND Internal Medicine Gastroenterology | DX: Z01.812 Encounter for preprocedural laboratory examination (principal); Z20.822 Contact with and (suspected) exposure to COVID-19 ==

== ENCOUNTER → 2021-03-27 | Outpatient (CLI) | payer MEDICARE | END | disposition home or self-care (01) | LOC: RAD 09:38 | PROVIDERS: ATTEND Orthopaedic Surgery | DX: M47.812 Spondylosis without myelopathy or radiculopathy, cervical region (principal); M48.02 Spinal stenosis, cervical region; M25.78 Osteophyte, vertebrae; G95.89 Other specified diseases of spinal cord ==

== ENCOUNTER → 2021-12-30 | Outpatient (CLI) | payer OTHER ==
[2021-12-30 15:52] LABS: BASO % 0.4 % (0.0-1.0); EOS # 0.2 10*3/uL (0.0-0.4); EOS % 4.4 % (1.0-4.0); HEMATOCRIT 42.6 % (42.0-52.0); LYMPH # 1.9 10*3/uL (1.3-4.4); LYMPH % 33.7 % (27.0-41.0); MEAN CELL VOLUME 98.6 fl (80.0-94.0); MEAN CORPUSCULAR HGB 32.6 pg (27.0-31.0); MEAN CORPUSCULAR HGB CONC 33.1 g/dl (33.0-37.0); MEAN PLATELET VOLUME 10.8 fl (9.6-12.3); MONO # 0.4 10*3/uL (0.1-1.0); MONO % 7.1 % (3.0-9.0); PLATELET COUNT AUTOMATED 206 10*3/uL (130-400); RED BLOOD COUNT 4.32 10*6/uL (4.50-5.90); RED CELL DISTRI WIDTH 12.5 % (0-14.5); WHITE BLOOD COUNT 5.5 10*3/uL (4.8-10.8)
[2021-12-30 16:08] LABS: ALKALINE PHOSPHATASE 78 U/L (45-117); BUN 17 mg/dl (7-24); CHLORIDE 107 mmol/L (98-107); CHOLESTEROL 114 mg/dL (<200); CREATININE 1.32 mg/dL (0.70-1.30); LDL CHOLESTEROL 57 mg/dL (9-159); POTASSIUM 4.7 mmol/L (3.5-5.1); SGOT/AST 18 IU/L (3-35); SGPT/ALT 29 U/L (12-78); SODIUM 138 mmol/L (136-145); TOTAL PROTEIN 7.1 gm/dL (6.4-8.2); TRIGLYCERIDES 149 mg/dl (<150)
== END | disposition home or self-care (01) ==
LOC: LAB 15:38
PROVIDERS: ATTEND Nurse Practitioner
DX: Z79.899 Other long term (current) drug therapy (principal); Z51.81 Encounter for therapeutic drug level monitoring

== ENCOUNTER → 2022-05-30 | Outpatient (CLI) | payer OTHER ==
[2022-05-30 08:50] LABS: BASO # 0.1 10*3/uL (0.0-0.1); BASO % 1.1 % (0.0-1.0); EOS # 0.5 10*3/uL (0.0-0.4); EOS % 6.4 % (1.0-4.0); HEMATOCRIT 43.7 % (42.0-52.0); LYMPH # 1.9 10*3/uL (1.3-4.4); MEAN CELL VOLUME 96.5 fl (80.0-94.0); MEAN CORPUSCULAR HGB CONC 33.2 g/dl (33.0-37.0); MEAN PLATELET VOLUME 10.7 fl (9.6-12.3); MONO # 0.5 10*3/uL (0.1-1.0); MONO % 6.4 % (3.0-9.0); NEUT # 5.1 10*3/uL (2.3-7.9); NEUT % 62.9 % (47.0-73.0); PLATELET COUNT AUTOMATED 268 10*3/uL (130-400); RED BLOOD COUNT 4.53 10*6/uL (4.50-5.90); RED CELL DISTRI WIDTH 13.1 % (0-14.5); WHITE BLOOD COUNT 8.1 10*3/uL (4.8-10.8)
[2022-05-30 09:06] LABS: ALKALINE PHOSPHATASE 78 U/L (45-117); BUN 12 mg/dl (7-24); CHLORIDE 108 mmol/L (98-107); CHOLESTEROL 170 mg/dL (<200); CREATININE 1.02 mg/dL (0.70-1.30); LDL CHOLESTEROL 102 mg/dL (9-159); POTASSIUM 4.5 mmol/L (3.5-5.1); SGOT/AST 16 IU/L (3-35); SGPT/ALT 33 U/L (12-78); SODIUM 140 mmol/L (136-145); TOTAL PROTEIN 7.1 gm/dL (6.4-8.2); TRIGLYCERIDES 138 mg/dl (<150)
== END ==
LOC: LAB 08:22
PROVIDERS: ATTEND Internal Medicine
DX: I12.9 Hypertensive chronic kidney disease with stage 1 through stage 4 chronic kidney disease, or unspecified chronic kidney disease (principal); N18.9 Chronic kidney disease, unspecified; Z12.5 Encounter for screening for malignant neoplasm of prostate; R73.09 Other abnormal glucose

== ENCOUNTER → 2022-07-20 | Outpatient (CLI) | payer OTHER | END | disposition home or self-care (01) | LOC: US 08:30 | PROVIDERS: ATTEND Internal Medicine | DX: N40.0 Benign prostatic hyperplasia without lower urinary tract symptoms (principal); R94.4 Abnormal results of kidney function studies; N32.89 Other specified disorders of bladder ==

== ENCOUNTER → 2022-10-11 | Outpatient (CLI) | payer OTHER | END | disposition home or self-care (01) | LOC: US 07:46 | PROVIDERS: ATTEND Urology | DX: N50.3 Cyst of epididymis (principal); N43.3 Hydrocele, unspecified; N50.819 Testicular pain, unspecified; N40.0 Benign prostatic hyperplasia without lower urinary tract symptoms ==

== ENCOUNTER → 2023-06-20 | Outpatient (CLI) | payer MEDICARE ==
[2023-06-20 10:11] LABS: BASO # 0.1 10*3/uL (0.0-0.1); BASO % 0.9 % (0.0-1.0); EOS # 0.3 10*3/uL (0.0-0.4); EOS % 3.7 % (1.0-4.0); HEMATOCRIT 43.1 % (42.0-52.0); LYMPH # 1.7 10*3/uL (1.3-4.4); LYMPH % 21.5 % (27.0-41.0); MEAN CELL VOLUME 101.4 fl (80.0-94.0); MEAN CORPUSCULAR HGB 33.9 pg (27.0-31.0); MEAN CORPUSCULAR HGB CONC 33.4 g/dl (33.0-37.0); MEAN PLATELET VOLUME 10.1 fl (9.6-12.3); MONO # 0.8 10*3/uL (0.1-1.0); MONO % 9.3 % (3.0-9.0); NEUT # 5.2 10*3/uL (2.3-7.9); NEUT % 64.4 % (47.0-73.0); PLATELET COUNT AUTOMATED 269 10*3/uL (130-400); RED BLOOD COUNT 4.25 10*6/uL (4.50-5.90); RED CELL DISTRI WIDTH 12.8 % (0-14.5); WHITE BLOOD COUNT 8.1 10*3/uL (4.8-10.8)
[2023-06-20 10:32] LABS: POTASSIUM 4.2 mmol/L (3.4-5.1); TOTAL PROTEIN 7.3 gm/dL (6.0-8.0)
== END ==
LOC: LAB 09:44
PROVIDERS: ATTEND Urology
DX: D40.0 Neoplasm of uncertain behavior of prostate (principal); R53.83 Other fatigue

== ENCOUNTER → 2023-08-31 | Outpatient (CLI) | payer MEDICARE | END | disposition home or self-care (01) | LOC: CT 08:22 | PROVIDERS: ATTEND Specialist | DX: J34.2 Deviated nasal septum (principal); J32.0 Chronic maxillary sinusitis; R42 Dizziness and giddiness ==